=== PATIENT | female | born 1950 | race African-American/Black ===

== ENCOUNTER 2021-03-25 15:51 | Emergency (ER) | payer OTHER ==
[~2021-03-25] VITALS: Ht 172.7 cm; Wt 49.9 kg
[2021-03-25] MEDS ORDERED: ENDOCET 5-3251 EACH PO (18:10)
[2021-03-25] MEDS ORDERED: FLEXERIL PO (18:17)
[2021-03-25 18:51] VITALS: BP 117/81
--- NOTE | 2021-03-27 07:11 | EKG ---
[place] [address] [facility] [place] [place] [address] ELECTROCARDIOGRAM REPORT Name: LUZMA MANN [id number] Admission: 03/25/21 Attend Phys: Discharge: 03/25/21 Date of : 54 Report #: [id number] [facility] ED Test Date: 2021-03-25 Test Time: 16:03:52 Pat Name: LUZMA MANN Department: Room: Gender: F Special Tax Auditor: ROSE : 1950 Requested By: Louis Narvaez Order Number: [id number] MD: Ulysses Hernandez Measurements Intervals Chadron Rate: 119 P: 81 ND: 179 QRS: 84 QRSD: 93 T: 5 QT: 290 QTc: 408 Interpretive Statements Sinus tachycardia Biatrial enlargement Borderline right axis deviation Borderline T wave abnormalities No previous ECG available for comparison Electronically Signed On 03-27-2021 7:11:41 CDT by Ulysses Hernandez [email or web address] <ELECTRONICALLY SIGNED> By: Ulysses Hernandez MD, [facility] 03/27/21 0711 1603 1603 Ulysses Hernandez MD, FACC /EPI
== END 2021-03-25 18:55 | disposition home or self-care (01) ==
LOC: ER 15:51
DX: M50.30 Other cervical disc degeneration, unspecified cervical region (principal); Z88.0 Allergy status to penicillin; Z72.0 Tobacco use

== ENCOUNTER 2021-04-08 18:43 | Emergency (ER) | payer OTHER ==
[~2021-04-08] VITALS: Ht 167.6 cm; Wt 49.9 kg
[~2021-04-08 18:43] MED LIST: ENDOCET 5-3251 EACH PO; FLEXERIL PO
[2021-04-08] MEDS ORDERED: FLEXERIL PO (20:42)
[2021-04-08 21:05] VITALS: BP 132/76
== END 2021-04-08 21:10 | disposition home or self-care (01) ==
LOC: ER 18:43
DX: M54.2 Cervicalgia (principal); G89.29 Other chronic pain; I10 Essential (primary) hypertension; M06.9 Rheumatoid arthritis, unspecified; Z88.0 Allergy status to penicillin

== ENCOUNTER 2021-09-13 17:45 | Inpatient (IN) | payer OTHER ==
[~2021-09-13] VITALS: Ht 167.6 cm; Wt 49.9 kg
[2021-09-13 17:50] VITALS: BP 109/68
[2021-09-13 19:49] LABS: ABSOLUTE NEUTROPHILS 4.6 thou/uL (1.4-8.2); BASOPHILS 0.6 % (0.0-2.0); EOSINOPHILS 3.8 % (0.0-3.0); HEMATOCRIT 28.9 % (37.0-47.0); HEMOGLOBIN 9.8 gm/dL (12.0-15.0); LYMPHOCYTES 25.7 % (24.0-44.0); MCH 33.2 pg (26.0-34.0); MCV 97.8 fL (80.0-100.0); MONOCYTES 10.4 % (1.0-8.0); PLATELET COUNT 311 thou/uL (150-400); POLYS 59.5 % (36.0-66.0); RBC 2.95 mil/uL (4.20-5.00); RDW 15.8 % (10.5-14.5); WBC 7.8 thou/uL (4.0-11.0)
[2021-09-13 19:58] LABS: CALCIUM 9.4 mg/dL (8.5-10.1); CREATININE 0.8 mg/dL (0.6-1.0); POTASSIUM 3.5 mmol/L (3.5-5.1)
[2021-09-13 21:12] LABS: URINE BILIRUBIN NEGATIVE (Negative); URINE BLOOD TRACE (Negative); URINE CLARITY CLEAR; URINE COLOR YELLOW; URINE GLUCOSE-RANDOM* NEGATIVE (Negative); URINE KETONES NEGATIVE (Negative); URINE NITRITE-REFLEX NEGATIVE (Negative); URINE PROTEIN (DIPSTICK) NEGATIVE (Negative); URINE UROBILINOGEN 0.2 E.U./dl (0.2-1.0)
[2021-09-13 21:14] LABS: URINE LEUKOCYTES-REFLEX 3+ (Negative)
[2021-09-13 21:31] LABS: CASTS None Seen /LPF (None Seen); SQUAMOUS 0-3 Few /LPF (0-3); URINE WBC-REFLEX 6-15 Few /HPF (0-5)
[2021-09-13 21:32] LABS: BACTERIA-REFLEX 1-9 Few /HPF (None Seen); CRYSTALS None Seen /LPF (None Seen); URINE RBC 1-2 Rare /HPF (NONE SEEN)
[2021-09-13 23:14] VITALS: BP 120/72
[2021-09-13 23:36] VITALS: BP 120/72
[2021-09-13] MEDS ORDERED: PROTONIX40 M4 PO (23:47)
[2021-09-13] MEDS ORDERED: NAPROSYN500 MG PO (23:48)
[2021-09-13] MEDS ORDERED: METHOTREXATE 22.5 M1 PO (23:49)
[2021-09-13] MEDS ORDERED: CELEXA20 MG PO (23:49)
[2021-09-13] MEDS ORDERED: TRIAMTERENE-HC1 EAC2 PO (23:50)
[2021-09-13] MEDS ORDERED: PERCOCET 7.5-31 EACH PO (23:51)
--- NOTE | 2021-09-14 02:28 | NUR ---
PT ADMITTED TO THE UNIT AT APPROXIMATELY 0030. PT IS A/O X4 AND IS NON WT BEARING AND IS W/C BOUND AT HOME. RA. VSS. AFEBRILE. MAINTANCE FLUID CURRENTLY INFUSING AT PRESCRIBED RATE WELL ABX. WOUND NOTED TO SACRAL AREA. UNABLE TO LOCATE CAMERA TO TAKE WOUND PHOTO FOR WOUND CARE. DRSG APPLIED. FEMALE EXTERNAL CATHETER IN PLACE WORKING APPROPRIATELY. PT STATES LAST BM WAS 09/13. DENIES C/O PAIN OR DISCOMFORT AT THIS TIME. MED REQ TO BE COMPLETED IN AM WHEN SON BRINGS LIST. PIER HAND HELPER NOTIFIED. FALL PRECAUTIONS IN PLACE, CALL LIGHT IS WITHIN REACH. PT HAS BEEN EDUCATED ON USE OF CALL LIGHT AND BED CONTROLS. MESSAGE SENT TO MERGED WITH [facility] TO INQUIRE ABOUT PUSH CALL LIGHT THAT WOULD BE EASIER FOR PT TO OPERATE.
[2021-09-14 02:58] VITALS: BP 124/74
[2021-09-14 06:11] LABS: HEMATOCRIT 25.4 % (37.0-47.0); HEMOGLOBIN 8.9 gm/dL (12.0-15.0); MCH 34.2 pg (26.0-34.0); MCHC 34.8 g/dL (28.0-37.0); MCV 98.1 fL (80.0-100.0); RBC 2.59 mil/uL (4.20-5.00); WBC 5.3 thou/uL (4.0-11.0)
[2021-09-14 06:22] LABS: CALCIUM 9.2 mg/dL (8.5-10.1); CREATININE 0.7 mg/dL (0.6-1.0); POTASSIUM 3.3 mmol/L (3.5-5.1)
[2021-09-14 06:39] LABS: % SATURATION 17 % (20-39); IRON 35 ug/dL (50-170); TIBC 204 ug/dL (250-450)
[2021-09-14 06:57] LABS: FOLIC ACID 29.9 ng/mL (8.6-58.9)
[2021-09-14 08:41] VITALS: BP 113/66
--- NOTE | 2021-09-14 15:37 | NUR ---
Assumed care of pt at 1300. Pain controlled. Dressing changed per dr orders. IV antibiotics infusing. Tamayo catheter in place. IV fluids infusing. Prefo boots in place. Low airloss mattress. Feeder. RA. Fall precautions in place. Will continue to monitor.
[2021-09-14 16:05] VITALS: BP 106/72
--- NOTE | 2021-09-14 16:47 | NUR ---
Patient is a 70-year-old female with a history of chronic non healing sacral wound, HTN, severe DJD, chronic neck pain s/p surgical intervention, and RA who presents to the ER from home for wound check. Patient concerned that her sacral wound might be infected, increase drainage, greenish and foul odor. . The wound normally does not smell or have drainage but . Per son this started about 1-2 weeks ago. , the pt. is bedbound after a surgery for cervical stenosis in April. She does not walk at all at this time and is wheelchair bound. Cm visited with son Rodriguez at bedside, Keya did not want to visit, she was resting. Intro to cm and [facility]. Prior to neck surgery she was able to walk, lives at home and her son Nelson stays with her. Manage her own medication. No stairs or steps. PCP is at [facility]. Has been in wheelchair since neck surgery, bsc. Has community based serviced Saturday - Saturday for 6 hrs per day. No hh in the past. Been to [facility] after neck surgery. would like to have her getting therapy or home health per son Rodriguez. Noted today that pt and ot variance, Keya was not wanted to work with therapy.
[2021-09-14 20:07] VITALS: BP 128/55
--- NOTE | 2021-09-15 05:44 | NUR ---
patient aox4 makes needs known. pain controlled this shift. patient turned q 2 hours as she can tolerate. patient encouraged fluids.fall precaution in place. patient in bed asleep at this time breathing regular and unlaboured.
[2021-09-15 05:59] LABS: BASOPHILS 0.7 % (0.0-2.0); EOSINOPHILS 6.6 % (0.0-3.0); HEMATOCRIT 30.2 % (37.0-47.0); HEMOGLOBIN 10.2 gm/dL (12.0-15.0); LYMPHOCYTES 33.7 % (24.0-44.0); MCH 33.1 pg (26.0-34.0); MCHC 33.6 g/dL (28.0-37.0); MCV 98.7 fL (80.0-100.0); MONOCYTES 11.4 % (1.0-8.0); PLATELET COUNT 304 thou/uL (150-400); POLYS 47.6 % (36.0-66.0); RBC 3.06 mil/uL (4.20-5.00); RDW 15.7 % (10.5-14.5); WBC 6.4 thou/uL (4.0-11.0)
[2021-09-15 06:33] LABS: ALBUMIN 2.2 g/dL (3.4-5.0); CALCIUM 9.4 mg/dL (8.5-10.1); CREATININE 0.8 mg/dL (0.6-1.0); TOTAL BILIRUBIN 0.4 mg/dL (0.2-1.0); TOTAL PROTEIN 8.1 g/dL (6.4-8.2)
[2021-09-15 07:45] VITALS: BP 114/51
--- NOTE | 2021-09-15 08:29 | HC ---
[facility] [address] [place] [address] CONSULTATION Name: LUZMA MANN Room #: 447-P ADM IN M.R.#: [id number] Admission: 09/13/21 Attend Phys: Jair Ryan Discharge: Date of : 54 Report #: [id number] THIS REPORT FOR: cc: QUINTIN - Family physician unknown QUINTIN - Family physician unknown Jericho Stanford MD ~ DATE OF SERVICE: 09/14/2021 INFECTIOUS DISEASE CONSULTATION ATTENDING PHYSICIAN: Dr. Ryan. REASON FOR EVALUATION: Suspected infection, chronic sacral decubitus ulcer. HISTORY OF PRESENT ILLNESS: Chart reviewed. The patient examined. This is a 70-year-old woman with history of longstanding debilitating rheumatoid arthritis due to complications, is now nonambulatory, requires wheelchair and spends most of her time in bed apparently, developed a sacral decubitus ulcer. She has been undergoing treatment. Over the course of last several days, had noticed increasing drainage described as thick and green with some malodor, also increasing pain associated with it, especially with pressure. She denies any systemic illness as fevers, chills. Appetite has been generally pretty good until recently. She was evaluated in the Emergency Room. Coronavirus testing was negative. A CT of the pelvis noted extensive soft tissue thickening and nodularity overlying the right paramedial aspect of the sacrum without evidence of focal fluid collection. No evidence of focal osseous destruction or erosion. Urinalysis did show moderate pyuria. Sed rate was 8. CRP of 50.5. Procalcitonin less than 0.05. She was admitted to undergo wound care, was empirically started on therapy including cefepime and vancomycin. Cultures are in progress. ALLERGIES: PENICILLINS. CURRENT MEDICATIONS: Include enoxaparin, oxycodone, hydrochlorothiazide/triamterene combination, citalopram, pantoprazole, vancomycin, cefepime, acetaminophen. PAST MEDICAL HISTORY: As described above, rheumatoid arthritis diagnosed as a young woman with severe complications, hypertension, chronic anemia. SOCIAL HISTORY: Nonsmoker, no ethanol currently, although had occasionally used in the past. No illicit drug use. FAMILY HISTORY: Noncontributory. REVIEW OF SYSTEMS: Otherwise, unremarkable with the exception of the above. [facility] [address] [place] [address] CONSULTATION Name: LUZMA MANN Room #: 447-[facility] IN ..#: [id number] Admission: 09/13/21 Attend Phys: Jair Ryan Discharge: Date of : 54 Report #: [id number] PHYSICAL EXAMINATION: GENERAL: She is alert, cooperative. She is chronically ill-appearing and undernourished, mild to moderate distress. She may have a degree of depression as well. VITAL SIGNS: Temperature 98.5, pulse 103, respirations 18, blood pressure 106/76. HEENT: Normocephalic. Extraocular muscles intact. NECK: Supple. SKIN: Warm, dry, no rashes. LUNGS: Diminished breath sounds. Few scattered crackles at the bases. HEART: Regular, may have a soft systolic murmur. ABDOMEN: Mildly distended, soft, nontender. ____ looking at the ulcer, it has just been changed. I will plan on seeing it tomorrow. GENITOURINARY AND RECTAL: Deferred. LABORATORY DATA: Blood cultures sterile thus far. Ferritin normal at 44. Iron level was low at 35. Electrolytes: Sodium 135, potassium 3.3, chloride 101, bicarbonate 28, anion gap of 6, BUN and creatinine 15 and 0.7, glucose of 98. Urinalysis, 6-15 white cells. CBC: White count of 7.8, H and H is 9.8 and 28.9, platelets of 311. ASSESSMENT AND PLAN: Chronic sacral decubitus ulcer, likely complicated by skin and soft tissue infection. At this point, the evidence of having something deeper is not apparent, also may well have a complicated urinary tract infection as well. We will continue empiric therapy. She notes she has felt better since her treatment began and there were cultures in progress. We will await those results ____ Wound Care has been consulted to see if they have plans to do some debridement. At this point, limiting factors including offloading and also nutrition in addition to the infection. We will try to address those as able. <ELECTRONICALLY SIGNED> By: Jericho Stanford MD 09/15/21 0829 1537 [id number] Jericho Stanford MD /nt
--- NOTE | 2021-09-15 14:36 | NUR ---
Discussed during los with the attending physician. No anticipated dc over the weekend. Will cont following as needed for dc needs.
--- NOTE | 2021-09-15 18:11 | NUR ---
Pt refused to wear prafo boots and also refused to turn off of the left side.
[2021-09-15 20:39] VITALS: BP 129/67
--- NOTE | 2021-09-16 06:44 | NUR ---
ASSUMED CARE AT 1900, PT REPOSITIONED EVERY 1 -2 HRS, COMPLIANT TO TX, NO ADVERSE REACTION, REMAINS ON PAIN MANAGEMENT CALL PAD WITHIN REACH, WILL CONTINUE TO MONITOR.
[2021-09-16 07:48] VITALS: BP 111/55
[2021-09-16 10:35] LABS: ABSOLUTE NEUTROPHILS 4.6 thou/uL (1.4-8.2); BASOPHILS 0.5 % (0.0-2.0); HEMATOCRIT 30.3 % (37.0-47.0); HEMOGLOBIN 9.8 gm/dL (12.0-15.0); LYMPHOCYTES 22.7 % (24.0-44.0); MCH 32.2 pg (26.0-34.0); MCHC 32.4 g/dL (28.0-37.0); MCV 99.2 fL (80.0-100.0); MONOCYTES 8.2 % (1.0-8.0); PLATELET COUNT 312 thou/uL (150-400); POLYS 62.6 % (36.0-66.0); RBC 3.05 mil/uL (4.20-5.00); RDW 15.7 % (10.5-14.5); WBC 7.4 thou/uL (4.0-11.0)
[2021-09-16 10:51] LABS: ALBUMIN 2.2 g/dL (3.4-5.0); CALCIUM 9.5 mg/dL (8.5-10.1); CREATININE 0.8 mg/dL (0.6-1.0); MAGNESIUM 1.5 mg/dL (1.8-2.4); POTASSIUM 3.8 mmol/L (3.5-5.1); TOTAL BILIRUBIN 0.3 mg/dL (0.2-1.0); TOTAL PROTEIN 7.9 g/dL (6.4-8.2)
--- NOTE | 2021-09-16 11:01 | HC ---
[facility] [place] [address] CONSULTATION Name: LUZMA MANN Room #: 447-P ADM IN M.R.#: [id number] Admission: 09/14/21 Attend Phys: Jair Ryan Discharge: Date of : 54 Report #: [id number] THIS REPORT FOR: cc: FAM - Family physician unknown FAM - Family physician unknown Mian Daigle MD ~ DATE OF SERVICE: 09/14/2021 CHIEF COMPLAINT: Sacral pressure ulceration. HISTORY OF PRESENT ILLNESS: This is a 70-year-old female patient who has been living at home, who has a chronic ulceration to her sacrum. She has a history of rheumatoid arthritis and has apparently undergone a recent cervical procedure, I suspect a cervical fusion, although the details of that surgery are unavailable to me at this time. She is admitted to the hospital with pain and drainage from the sacral ulcer, and I have been asked to see her with regard to wound care. The patient has generalized pain. She is cared for at home by a soda column operator and other family members. ALLERGIES: PENICILLIN. MEDICATIONS: At this time include citalopram, methotrexate, Naprosyn, oxycodone, pantoprazole, triamterene/hydrochlorothiazide. PAST MEDICAL HISTORY: Positive for history of hypertension, rheumatoid arthritis, cervical stenosis, generalized debility, current urinary tract infection and chronic pressure ulcer to the sacrum. FAMILY HISTORY: Noncontributory. REVIEW OF SYSTEMS: CONSTITUTIONAL: The patient denies fever, chills, weight loss. NEUROLOGICAL: The patient denies focal weakness. ENT: The patient denies earache, nasal drainage, sore throat. CARDIOVASCULAR: The patient denies chest pain, palpitations, diaphoresis. PULMONARY: Denies cough, shortness of breath. GASTROINTESTINAL: The patient denies nausea or abdominal pain. ORTHOPEDIC: The patient complains of pain in her neck as well as a sacral ulcer. Others systems in a 14-point review of systems are negative. PHYSICAL EXAMINATION: VITAL SIGNS: Include temperature 36.9, pulse 89, respiratory rate of 18, blood pressure 113/66. GENERAL: This is a well-developed female patient, who appears to be in [address] [address] CONSULTATION Name: LUZMA MANN Room #: 447-P [facility] IN M.R.#: [id number] Admission: 09/14/21 Attend Phys: Jair Ryan Discharge: Date of : 54 Report #: [id number] distress. HEENT: Head is normocephalic. NECK: Tender and stiff. LUNGS: Diminished. HEART: Regular rate and rhythm. ABDOMEN: Soft, bowel sounds present. Sacral region demonstrates what appears to be a stage IV sacral pressure ulceration that is actually relatively clean. Bone is palpable in the deep base. It has the appearance that it has already been surgically debrided. There is no necrotic tissue and minimal odor or drainage noted at this time. NEUROLOGIC: The patient is awake and alert and appears to be moving symmetrically and spontaneously. LABORATORY STUDIES: Include sodium 135, potassium 3.3, chloride 101, CO2 of 28, BUN 15, creatinine 0.7. White blood cell count 5.3 with a hemoglobin of 8.9. CLINICAL IMPRESSION: 1. Stage IV sacral pressure ulceration. 2. Urinary tract infection. 3. Hypertension. 4. Status post cervical surgery, possible fusion. 5. Rheumatoid arthritis. RECOMMENDATIONS: At this point in time, the patient was placed on a low air loss mattress with q. 2 hour turning and positioning. We will start with quarter strength Dakin's moist gauze solution to be applied daily. She will need to q. 2 hour turning and repositioning. CT scan thus far shows no evidence of osteomyelitis and therefore, I do not feel she will need additional surgical intervention. She will need aggressive nutritional support. I appreciate being asked to see her in consultation. <ELECTRONICALLY SIGNED> By: Mian Daigle MD 09/16/21 1101 1113 [id number] Mian Daigle MD /nt
--- NOTE | 2021-09-16 13:53 | NUR ---
ASSUMED PT CARE THIS AM. PT IS ALERT & ORIENTED X4 AND FORGETFUL AT TIMES. PT HAS IV SITE ON RFA. INFUSED ANTIBIOTICS PER ORDERED. DID WOUND DRESSING ON R SACRAL WITH NS, DAKINS MOIST GAUZE, DRY GAUZE AND TAPE. GIVEN PAIN MEDICATION PER PT ORDERED. PT IS ON ROOM AIR. PT IS TURN Q2H AND HAS LOW AIR LOSS MATTRESS. WILL CONTINUE TO MONITOR PT. FOLLOW POC.
[2021-09-16 16:22] VITALS: BP 104/57
[2021-09-16 20:21] VITALS: BP 113/64
--- NOTE | 2021-09-17 04:29 | NUR ---
RECEIVED CARE OF THIS PATIENT AT 1900. ON BEDREST D/T ALL EXT BEING CONTRACTED. HAS TOUCH SENSITIVE CALL LIGHT. C/O PAIN, MED GIVEN. PATIENT ALERT AND ORIENTED X4 BUT FORGETFUL. SMALL PATENT YELLOW URINE. SLEPT MOST OF NIGHT.
[2021-09-17 05:36] LABS: ABSOLUTE NEUTROPHILS 3.5 thou/uL (1.4-8.2); BASOPHILS 0.6 % (0.0-2.0); EOSINOPHILS 6.6 % (0.0-3.0); HEMATOCRIT 29.4 % (37.0-47.0); HEMOGLOBIN 9.7 gm/dL (12.0-15.0); LYMPHOCYTES 28.5 % (24.0-44.0); MCH 32.8 pg (26.0-34.0); MCV 99.5 fL (80.0-100.0); MONOCYTES 9.4 % (1.0-8.0); PLATELET COUNT 308 thou/uL (150-400); POLYS 54.9 % (36.0-66.0); RBC 2.95 mil/uL (4.20-5.00); RDW 15.6 % (10.5-14.5); WBC 6.3 thou/uL (4.0-11.0)
[2021-09-17 05:49] LABS: CALCIUM 9.5 mg/dL (8.5-10.1); CREATININE 0.7 mg/dL (0.6-1.0); MAGNESIUM 2.2 mg/dL (1.8-2.4)
[2021-09-17 07:00] VITALS: BP 102/64
--- NOTE | 2021-09-17 15:55 | NUR ---
ASSUMED CARE OF PT [id number]. BEDSIDE REPORT RECIEVED. JUAN DIEGO ASSESSMENT COMPLETE. FAMILY AT BEDSIDE. IV ABTS RUNNING. PAIN MEDS GIVEN ACCORDINGLY. Q 2 HORU REPOSITIOING. SMALL CARE COMPLETE. HOURLY ROUNDING CONTINUING. CALL LIGHT IN [facility]
[2021-09-17 19:32] VITALS: BP 110/64
--- NOTE | 2021-09-18 04:24 | NUR ---
UPON SHIFT REPORT, PT REPORTS 10/10 GENERALIZED PAIN. PT RECEIVING SCHEDULED PO OXYCODONE IR TID, LAST GIVEN AT 1331. UPON SHIFT ASSESSMENT, PT AOX4, CONTINUES TO REPORT 10/10 GENERALIZED PAIN. PT RECEIVING PRN OXYCODONE Q4HR WITH PRN IV FENTANYL Q4HR AND PRN PO APAP Q4HR AVAILABLE. PT DENIES SOB WHILE ON ROOM AIR. PT TOLERATING PO INTAKE OF FLUIDS AND REGULAR DIET WITHOUT ISSUE. PT WITHOUT NAUSEA OR EMESIS. PT VOIDING PER SMALL CATHETER, LIGHT YELLOW URINE NOTED. PT RESTING IN BED THROUGHOUT SHIFT, NONAMBULATING, CONTRACTURES TO BUE AND BLE NOTED. FREQUENT REPOSITIONING ENCOURAGED WHILE IN BED, PT INTERMITTENT REFUSING REPOSITIONING ASSISTANCE DUE TO REPORTS OF COMFORT, LOW AIR LOSS MATTRESS IN PLACE. PT REFUSING WOUND CARE AND DRESSING CHANGE AT HS, REQUESTING WOUND CARE AND DRESSING CHANGE IN THE MORNING, WILL ATTEMPT AGAIN PRIOR TO END OF SHIFT. PT ENCOURAGED TO NOTIFY STAFF FOR ALL NEEDS, CALL LIGHT WITHIN REACH, BED ALARM ON, BED LOCKED IN LOWEST POSITION, FREQUENT MONITORING WILL CONTINUE.
[2021-09-18 07:04] VITALS: BP 130/72
--- NOTE | 2021-09-18 11:00 | NUR ---
Discussed during los with the attending physician. Cm went to visit with melba at bedside, wound care nurse finished with his visit. Cm provided education on skilled rehab, cont IV abx if needed and wound care. She became very tearful, cm got her some kleenex for her tears and eyes. Active listening and support. I will not go to another facility, lost my while i was at a facility and did not get to go to the . I want to go home, i have caregiver, just need dr to write for more house needed, please i will not go, i am going home per melba. End of visit she was not crying will discuss with family and cont. dcp as needed.
[2021-09-18 15:45] VITALS: BP 94/61
--- NOTE | 2021-09-18 18:30 | NUR ---
PT ASSESSED AT START OF SHIFT. FREQUENTLY ASKING ABOUT WHEN SHE'LL BE DISCHARGED TO GO HOME. HAD LARGE SOFT BR BM THIS AM. FED AT ALL MEALS AND EATS WELL. TURNED Q2HRS. VERY PAINFUL WHEN REPOSITIONED FOR CONTRACTURES. DSNG TO BOTTOM. FAMILY IN FOR VISIT.
[2021-09-18 20:31] VITALS: BP 100/65
--- NOTE | 2021-09-19 04:58 | NUR ---
PT IS A/O X4 AND IS ON BEDREST. MEDICATIONS GIVEN PER MAR. C/O PAIN. PRN PAIN MEDICATION GIVEN DIRECTED. FALL PRECAUTIONS IN PLACE, CALL LIGHT IS WITHIN REACH.
--- NOTE | 2021-09-19 09:15 | NUR ---
discussed hh with melba and caregiver passion with [facility]. that will possible dc home today.
--- NOTE | 2021-09-19 10:09 | NUR ---
ASSUMED PT CARE THIS AM. PT IS FORGETFUL AT TIMES. PT HAS IV SITE ON RFA SALINE LOCKED. PT IS ON ROOM AIR. PT HAS LOW AIR LOSS BED PUMP AND PT REFUSED TO WEAR PRAFO BOOTS. PT HAS SMALL CATH IN PLACE. EDUCATED PT ABOUT MEDICATIONS THIS AM. PT IS A FEEDER. PT TOLERATED MEDICATION AND DIET WELL. WILL CONTINUE TO MONITOR PT. FOLLOW POC.
[2021-09-19 12:11] VITALS: BP 112/58
[2021-09-19] MEDS ORDERED: MINOCYCLINE 5050 M1 PO (12:27)
[2021-09-19] MEDS ORDERED: COLACE100 MG PO (12:27)
[2021-09-19] MEDS ORDERED: MIRALAX17 GM PO (12:27)
--- NOTE | 2021-09-19 12:55 | NUR ---
cm notified MD and bedside nurse she has some concerns. Rediscussed hh. referral sent to [facility] per tammi garner. Family will be able to transport her home today.
--- NOTE | 2021-09-20 12:16 | NUR ---
Had phone call with melba caregiver passion who stated the solution for her wound care is not covered by her insurance and need something the insurance covers. Cm provider her with the wound clinic # [phone].
== END 2021-09-19 17:55 | disposition home health service (06) | DRG 592 ==
LOC: ER 17:45 → 4S 21:53 → EROBS 21:53 → 4S 23:44
PROVIDERS: Internal Medicine; Nurse Practitioner Family; Physician Assistant; Specialist; ADMIT Hospitalist; ATTEND Hospitalist
DX: L89.154 Pressure ulcer of sacral region, stage 4 (principal); E43 Unspecified severe protein-calorie malnutrition; N39.0 Urinary tract infection, site not specified; Z68.1 Body mass index [BMI] 19.9 or less, adult; M06.9 Rheumatoid arthritis, unspecified; I10 Essential (primary) hypertension; G89.29 Other chronic pain; M19.90 Unspecified osteoarthritis, unspecified site; R53.81 Other malaise; M54.2 Cervicalgia; B99.8 Other infectious disease; Z20.822 Contact with and (suspected) exposure to COVID-19; D63.8 Anemia in other chronic diseases classified elsewhere; K59.00 Constipation, unspecified; Z88.0 Allergy status to penicillin; Z79.1 Long term (current) use of non-steroidal anti-inflammatories (NSAID); Z74.01 Bed confinement status
CPT/HCPCS: 10195